=== PATIENT | male | born 1985 | race Caucasian/White ===

== ENCOUNTER 2018-01-18 15:22 | Emergency (ER) | payer OTHER ==
[~2018-01-18] VITALS: Ht 167.6 cm; Wt 90.7 kg
[~2018-01-18 15:22] MED LIST: LISINOPRIL20 MG
[2018-01-18 17:35] VITALS: BP 131/81
== END 2018-01-18 17:35 | disposition home or self-care (01) ==
LOC: M.ERS 15:22
DX: J70.5 Respiratory conditions due to smoke inhalation (principal); I10 Essential (primary) hypertension; Z88.1 Allergy status to other antibiotic agents